=== PATIENT | male | born 1975 | race Caucasian/White ===

== ENCOUNTER → 2020-04-22 | Day surgery (SDC) | payer BC ==
[2020-04-19 10:51] VITALS: BMI 32.1
[~2020-04-22] MED LIST: BUPIVACAINE HCL/PF 0.25% (2.5MG/ML) 10 ML VIAL IJ ONE; BUPIVACAINE HCL/PF 0.25% (2.5MG/ML) 10 ML VIAL ONE; DEXAMETHASONE SOD PHOSPHATE 4 MG/1 ML VIAL ONE; LACTATED RINGERS SOLUTION 1,000 ML IV SCH; LIDOCAINE 1% P/F 10 MG/ML VIAL INF ONE; MIDAZOLAM HCL 2 MG/2 ML SINGLE DOSE VIAL ONE; ONDANSETRON 4 MG/2 ML VIAL IVPUSH PRN; ONDANSETRON 4 MG/2 ML VIAL ONE; PROPOFOL 20 ML ONE; ceFAZolin SODIUM 1 GM VIAL ONE; oxyCODONE HCL 5 MG TABLET PO PRN
[2020-04-22 11:33] VITALS: BP 130/77; PULSE 76; TEMP 98.2
--- NOTE | 2020-04-23 12:17 | OP ---
DATE OF OPERATION: 04/22/2020 SURGEON: Nabor Marx MD SPECIAL EDUCATION TEACHER: YELENA Farrar PREOPERATIVE DIAGNOSIS: Right ankle mass/bone mass, surrounding soft tissue. POSTOPERATIVE DIAGNOSIS: Right ankle mass/bone mass, surrounding soft tissue. PROCEDURE: Excision of mass, right medial ankle. FINDINGS: Bone spur, medial malleolus, with surrounding soft tissue. DESCRIPTION OF PROCEDURE: Patient was taken to the operating room where the right lower extremity was prepped and draped in usual sterile fashion. Tourniquet was placed on the upper leg, inflated to 300 mmHg. Incision was made along the mass in a longitudinal nature, approximately 5 cm in length. Mass was identified and along the base of the spur a rongeur was used, removing it in pieces and making a concave into the remaining portion of the tibia and removing the spur completely. This was then irrigated with copious amounts of irrigation, sent to pathology for evaluation. The bleeding bone surface was then coated with bone wax. Wound was irrigated again, closed with 2-0 Vicryl and 3-0 nylon. Sterile dressing was placed. Patient was transferred to recovery room without complication. The PA listed above was present and assisted at surgery. Their presence was absolutely medically necessary for the completion of the procedure. They helped hold the arthroscopy, pass instruments (and implants when indicated) and the procedure could not have been completed without their assistance. NABOR MARX M.D. [id number]
--- NOTE | 2020-04-27 17:33 | PATH ---
Surgical Pathology Report Patient Name: KELLY HARDIN Med. Rec. #: [id number] /Age/Gender: 1975 (Age: 45) / M Account: [id number] Location: [facility] AMBULATORY Taken: 04/22/2020 Received: 04/22/2020 Reported: 04/27/2020 Physicians: Victorino Lopez M.D. Specimen(s) Received ANKLE BONE FRAGMENTS, RIGHT Clinical History Right ankle bone spur Final Diagnosis ANKLE BONE FRAGMENTS, RIGHT, SPUR REMOVAL: BONE WITH DEGENERATIVE CHANGES AND ADHERENT FIBROCONNECTIVE TISSUE. Electronically Signed Taylor Adam M.D. Gross Description Received in formalin labeled "right ankle bone fragments," is a 1.7 x 1.4 x 0.3 cm aggregate of matthews-yellow bone fragments. The specimen is entirely submitted in one cassette, following decalcification. DL/04/22/2020 saudi/04/22/2020
== END | disposition home or self-care (01) ==
LOC: EDBD → FASU 07:14
PROVIDERS: ATTEND Orthopaedic Surgery
PROC: 0QBG0ZZ Excision of Right Tibia, Open Approach (ICD-10-PCS; principal; 2020-04-22 09:35)
DX: M25.772 Osteophyte, left ankle (principal)
CPT/HCPCS: 73610-TC-RT-FY; 88304-TC; 88311-TC; 94760